=== PATIENT | female | born 1975 | race African-American/Black ===

== ENCOUNTER 2018-08-25 11:43 | Emergency (ER) | payer OTHER ==
[2018-08-25 11:47] VITALS: BMI 30.1
--- NOTE | 2018-08-25 12:41 | PDOC ---
*Physical Exam - Vital Signs Last Vital Signs Temp Pulse Resp BP Pulse Ox 98.7 F 90 20 116/79 99 08/25/18 11:45 08/25/18 11:45 08/25/18 11:45 08/25/18 11:45 08/25/18 11:45 ED Treatment Course - LABORATORY CBC & Chemistry Diagram: 08/25/18 13:05 08/25/18 13:05 Medical Decision Making - Medical Decision Making 08/25/18 12:40 42 yo F presenting with a complaint of 2 weeks of cough Now with chest tightness No prior history of asthma No fevers or chills No exertional symptoms Pt seen by Midlevel Provider under my direct supervision Pt interviewed and examined Ancillary studies reviewed Likely bronchitis I agree with plan as outlined by Midlevel Provider Pt improved after neb treatment 08/25/18 12:46 Twelve-lead EKG was performed and reviewed by me. There is normal sinus rhythm with a normal rate. The axis is normal. The intervals are normal. There are no ST or T wave abnormalities. Impression: Normal twelve-lead EKG 08/28/18 20:03 *DC/Admit/Observation/Transfer Diagnosis at time of Disposition: Bronchitis - Discharge Dispostion Disposition: HOME Condition at time of disposition: Stable - Prescriptions Prescriptions: Albuterol Sulfate Inhaler - [Ventolin HFA Inhaler -] 1 - 2 inh PO Q4H #1 inhaler Benzonatate [Tessalon Pearls -] 100 mg PO TID #21 capsule Methylprednisolone [Medrol Dose Khoi] 4 mg PO ASDIR #21 tablet - Referrals Referrals: Filemon Ibarra MD [Staff Physician] - - Patient Instructions Printed Discharge Instructions: DI for Acute Bronchitis Additional Instructions: You have bronchitis. Please take the albuterol inhaler every 4 hours until her symptoms improve. He may take a Medrol Dosepak as prescribed. Start taking this tomorrow as he received steroids today. Please take Tessalon Perles every 8 hours as needed for cough. Drink plenty of fluids. Her EKG and chest x-ray were normal today. Help with her primary care doctor this week. Return to the emergency department for increased difficulty breathing, chest pain, or if you have any changes in her symptoms. - Post Discharge Activity Forms/Work/School Notes: Back to Work
[2018-08-25] MEDS ORDERED: predniSONE 20 MG TABLET (UD) PO ONE (12:43)
--- NOTE | 2018-08-25 12:44 | PDOC ---
History of Present Illness - General Chief Complaint: Chest Pain Stated Complaint: CHEST PAIN Time Seen by Provider: 08/25/18 12:25 Past History - Travel Traveled outside of the country in the last 30 days: No Close contact w/someone who was outside of country & ill: No - Past Medical History Allergies/Adverse Reactions: Allergies Allergy/AdvReac Type Severity Reaction Status Date / Time No Known Allergies Allergy Verified 08/25/18 11:47 Home Medications: Ambulatory Orders Albuterol Sulfate Inhaler - [Ventolin HFA Inhaler -] 1 - 2 inh PO Q4H #1 inhaler 08/25/18 Benzonatate [Tessalon Pearls -] 100 mg PO TID #21 capsule 08/25/18 Methylprednisolone [Medrol Dose Khoi] 4 mg PO ASDIR #21 tablet 08/25/18 COPD: No Diabetes: Yes - Immunization History Immunization Up to Date: Yes - Suicide/Smoking/Psychosocial Hx Smoking History: Never smoked Have you smoked in the past 12 months: No Information on smoking cessation initiated: No Hx Alcohol Use: Yes (social) Drug/Substance Use Hx: No Review of Systems - Review of Systems Able to Perform ROS?: Yes Comments:: 08/25/18 12:44 CONSTITUTIONAL: Absent: fever, chills, diaphoresis, generalized weakness, malaise, loss of appetite HEENT: Absent: rhinorrhea, nasal congestion, throat pain, throat swelling, difficulty swallowing, mouth swelling, ear pain, eye pain, visual Changes CARDIOVASCULAR: Absent: chest pain, loss of consciousness, palpitations, irregular heart rate, peripheral edema RESPIRATORY: Absent: cough, shortness of breath, dyspnea with exertion, orthopnea, wheezing, stridor, hemoptysis GASTROINTESTINAL: Absent: abdominal pain, abdominal distension, nausea, vomiting, diarrhea, constipation, melena, hematochezia GENITOURINARY: Absent: dysuria, frequency, urgency, hesitancy, hematuria, flank pain, genital pain MUSCULOSKELETAL: Absent: myalgia, arthralgia, joint swelling SKIN: Absent: rash, itching, pallor HEMATOLOGIC/IMMUNOLOGIC: Absent: easy bleeding, easy bruising, lymphadenopathy, frequent infections ENDOCRINE: Absent: unexplained weight gain, unexplained weight loss, heat intolerance, cold intolerance NEUROLOGIC: Absent: headache, focal weakness or paresthesias, dizziness, unsteady gait, seizure, mental status changes, bladder or bowel incontinence PSYCHIATRIC: Absent: anxiety, depression, suicidal or homicidal ideation, hallucinations. Is the patient limited Arabic proficient: No *Physical Exam - Vital Signs Last Vital Signs Temp Pulse Resp BP Pulse Ox 98.7 F 90 20 116/79 99 08/25/18 11:45 08/25/18 11:45 08/25/18 11:45 08/25/18 11:45 08/25/18 11:45 - Physical Exam Comments: 08/25/18 12:44 GENERAL: Well developed, well nourished. Awake and alert. No acute distress. HEENT: Normocephalic, atraumatic. PERRLA, EOMI. No conjunctival pallor. Sclera are non- icteric. Moist mucous membranes. Oropharynx is clear. NECK: Supple. Full ROM. No JVD. Carotid pulses 2+ and symmetric, without bruits. No thyromegaly. No lymphadenopathy. CARDIOVASCULAR: Regular rate and rhythm. No murmurs, rubs, or gallops. Distal pulses are 2+ and symmetric. PULMONARY: No evidence of respiratory distress. Lungs clear to auscultation bilaterally. No wheezing, rales or rhonchi. ABDOMINAL: Soft. Non-tender. Non-distended. No rebound or guarding. No organomegaly. Normoactive bowel sounds. MUSCULOSKELETAL Normal range of motion at all joints. No bony deformities or tenderness. No CVA tenderness. EXTREMITIES: No cyanosis. No clubbing. No edema. No calf tenderness. SKIN: Warm and dry. Normal capillary refill. No rashes. No jaundice. NEUROLOGICAL: Alert, awake, appropriate. Cranial nerves 2-12 intact. No deficits to light touch and temperature in face, upper extremities and lower extremities. No motor deficits in the in face, upper extremities and lower extremities. Normoreflexic in the upper and lower extremities. Normal speech. Toes are down- going bilaterally. Gait is normal without ataxia. PSYCHIATRIC: Cooperative. Good eye contact. Appropriate mood and affect. Moderate Sedation - Procedure Monitoring Vital Signs: Procedure Monitoring Vital Signs Temperature 98.7 F 08/25/18 11:45 Pulse Rate 90 08/25/18 11:45 Respiratory Rate 20 08/25/18 11:45 Blood Pressure 116/79 08/25/18 11:45 O2 Sat by Pulse Oximetry (%) 99 08/25/18 11:45 ED Treatment Course - LABORATORY CBC & Chemistry Diagram: 12/21/18 13:05 08/25/18 13:05 *DC/Admit/Observation/Transfer Diagnosis at time of Disposition: Bronchitis - Discharge Dispostion Disposition: HOME Condition at time of disposition: Stable Decision to Admit order: No - Referrals Referrals: Filemon Ibarra MD [Staff Physician] - - Patient Instructions Printed Discharge Instructions: DI for Acute Bronchitis Additional Instructions: You have bronchitis. Please take the albuterol inhaler every 4 hours until her symptoms improve. He may take a Medrol Dosepak as prescribed. Start taking this tomorrow as he received steroids today. Please take Tessalon Perles every 8 hours as needed for cough. Drink plenty of fluids. Her EKG and chest x-ray were normal today. Help with her primary care doctor this week. Return to the emergency department for increased difficulty breathing, chest pain, or if you have any changes in her symptoms. - Post Discharge Activity Forms/Work/School Notes: Back to Work
[2018-08-25] MEDS ORDERED: ALBUTEROL SO4 2.5/IPRATROPIUM 0.5 INH SOL 3 ML VIAL.NEB. NEB ONE ×2 (12:48→13:25)
[2018-08-25] MEDS ORDERED: predniSONE 20 MG TABLET (UD) ONE (12:49)
[2018-08-25] MEDS: ALBUTEROL SO4 2.5/IPRATROPIUM 0.5 INH SOL 3 ML VIAL.NEB. NEB SCH ×4 (12:56→13:52)
[2018-08-25 13:12] LABS: BASO % 0.9 % (0-2.0); EOS % 3.6 % (0-4.5); HEMATOCRIT 38.8 % (32.4-45.2); HEMOGLOBIN 13.2 GM/dL (10.7-15.3); LYMPH % 43.1 % (8-40); MCH 28.8 pg (25.7-33.7); MCHC 34.1 g/dl (32.0-36.0); MEAN CELL VOLUME 84.5 fl (80-96); MEAN PLT VOLUME 8.4 fl (7.5-11.1); MONO % 11.6 % (3.8-10.2); NEUT % 40.8 % (42.8-82.8); PLATELET COUNT 231 K/MM3 (134-434); RBC 4.59 M/mm3 (3.60-5.2); RDW 14.8 % (11.6-15.6); WHITE BLOOD COUNT 3.6 K/mm3 (4.0-10.0)
[2018-08-25 13:52] LABS: URINE APPEARANCE SLCLOUDY; URINE BILIRUBIN NEGATIVE (<2.0 mg/dL); URINE COLOR DKYELLOW; URINE GLUCOSE (UA) 1+ (NEGATIVE); URINE KETONE TRACE (NEGATIVE); URINE LEUK ESTERASE NEGATIVE (NEGATIVE); URINE NITRITE NEGATIVE (NEGATIVE); URINE PROTEIN NEGATIVE (NEGATIVE)
[2018-08-25 14:16] LABS: ALBUMIN 3.7 g/dl (3.4-5.0); ALK PHOS 102 U/L (45-117); ANION GAP 5 MMOL/L (8-16); BILIRUBIN,TOTAL 0.2 mg/dL (0.2-1); BLOOD UREA NITROGEN 12 mg/dL (7-18); CALCIUM 8.8 mg/dL (8.5-10.1); CHLORIDE 102 mmol/L (98-107); CO2 29 mmol/L (21-32); CREATININE 0.7 mg/dL (0.55-1.3); GLUCOSE,RANDOM 210 mg/dL (74-106); POTASSIUM 4.1 mmol/L (3.5-5.1); SGOT/AST 17 U/L (15-37); SGPT/ALT 22 U/L (13-61); SODIUM 137 mmol/L (136-145); TOT PROT 7.9 g/dl (6.4-8.2)
--- NOTE | 2018-08-25 14:22 | EKG ---
Test Reason : Blood Pressure : / mmHG Vent. Rate : 085 BPM Atrial Rate : 085 BPM P-R Int : 160 ms QRS Dur : 084 ms QT Int : 356 ms P-R-T Axes : 035 026 019 degrees QTc Int : 423 ms POOR DATA QUALITY, INTERPRETATION MAY BE ADVERSELY AFFECTED NORMAL SINUS RHYTHM NORMAL ECG NO PREVIOUS ECGS AVAILABLE Confirmed by SELENE MCKAY MD ([id number]) on 08/25/2018 2:21:39 PM Referred By: Confirmed By:SELENE MCKAY MD
[2018-08-25 15:16] VITALS: BP 126/78; PULSE 78; TEMP 98.2
== END 2018-08-25 15:15 | disposition home or self-care (01) ==
LOC: JER 11:43
PROC: 3E0F7GC Introduction of Other Therapeutic Substance into Respiratory Tract, Via Natural or Artificial Opening (ICD-10-PCS; principal; 2018-08-25)
DX: J20.9 Acute bronchitis, unspecified (principal)
CPT/HCPCS: 36415; 71046-TC-FY; 80053; 81003; 85025; 93005; 93010; 99282-25

== ENCOUNTER 2019-02-28 13:37 | Emergency (ER) | payer OTHER ==
[2019-02-28] MEDS ORDERED: ASPIRIN 81 MG CHEWABLE TABLETS PO ONE ×2 (13:40→15:41)
[2019-02-28 13:41] VITALS: BP 114/76; PULSE 86; TEMP 98.5; BMI 29.2
--- NOTE | 2019-02-28 13:41 | PDOC ---
Rapid Medical Evaluation Time Seen by Provider: 02/28/19 13:39 Medical Evaluation: Allergies Allergy/AdvReac Type Severity Reaction Status Date / Time No Known Allergies Allergy Verified 08/25/18 11:47 02/28/19 13:39 HPI: Chest pain radiating into L arm PE: No gross deficits: Orders Cardiac work up Discharge Disposition - Diagnosis Chest pain - Referrals Referrals: Juan Pablo Aragon MD [Primary Care Provider] - - Patient Instructions - Post Discharge Activity
--- NOTE | 2019-02-28 15:19 | PDOC ---
History of Present Illness - General Chief Complaint: Chest Pain Stated Complaint: Chest Pain Time Seen by Provider: 02/28/19 13:39 - History of Present Illness Initial Comments: 02/28/19 15:18 Ms. Oates is a 43 yo female w/ no significant pmh who presents for evaluation of chest pain and light-headed feeling. Patient reports symptoms started yesterday with generalized "off" feeling that she describes as feeling light- headed. Ms. 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 Patient denies any other associated symptoms and has never had this feeling before. Is no longer having chest pain however now describes her symptoms as "chest pressure." The patient denies headache and dizziness. Denies fever, chills, nausea, vomit, diarrhea and constipation. Denies dysuria, frequency, urgency and hematuria. Past History - Past Medical History Allergies/Adverse Reactions: Allergies Allergy/AdvReac Type Severity Reaction Status Date / Time No Known Allergies Allergy Verified 02/28/19 13:41 Home Medications: Ambulatory Orders NK [No Known Home Medication] 02/28/19 COPD: No Diabetes: Yes - Immunization History Immunization Up to Date: Yes - Suicide/Smoking/Psychosocial Hx Smoking History: Never smoked Have you smoked in the past 12 months: No Hx Alcohol Use: Yes (social) Drug/Substance Use Hx: No Review of Systems - Review of Systems Comments:: 02/28/19 15:18 GENERAL/CONSTITUTIONAL: No fever or chills. No weakness. HEAD, EYES, EARS, NOSE AND THROAT: No change in vision. No ear pain or discharge. No sore throat. CARDIOVASCULAR: +Chest pain and SOB as described w/ "lightheaded feeling" RESPIRATORY: No cough, wheezing, or hemoptysis. GASTROINTESTINAL: No nausea, vomiting, diarrhea or constipation. GENITOURINARY: No dysuria, frequency, or change in urination. MUSCULOSKELETAL: No joint or muscle swelling or pain. No neck or back pain. SKIN: No rash NEUROLOGIC: No headache, vertigo, loss of consciousness, or change in strength/ sensation. ENDOCRINE: No increased thirst. No abnormal weight change HEMATOLOGIC/LYMPHATIC: No anemia, easy bleeding, or history of blood clots. ALLERGIC/IMMUNOLOGIC: No hives or skin allergy. *Physical Exam - Vital Signs Last Vital Signs Temp Pulse Resp BP Pulse Ox 98.5 F 86 18 114/76 96 02/28/19 13:39 02/28/19 13:39 02/28/19 13:39 02/28/19 13:39 02/28/19 13:39 - Physical Exam Comments: 02/28/19 15:18 GENERAL: Awake, alert, and fully oriented, in no acute distress HEAD: No signs of trauma, normocephalic, atraumatic EYES: PERRLA, EOMI, sclera anicteric, conjunctiva clear ENT: Auricles normal inspection, hearing grossly normal, nares patent, oropharynx clear without exudates. Moist mucosa NECK: Normal ROM, supple, no lymphadenopathy, JVD, or masses LUNGS: +Reproducible chest TTP. No distress, speaks full sentences, clear to auscultation bilaterally HEART: Regular rate and rhythm, normal S1 and S2, no murmurs, rubs or gallops, peripheral pulses normal and equal bilaterally. ABDOMEN: Soft, nontender, normoactive bowel sounds. No guarding, no rebound. No masses EXTREMITIES: Normal inspection, Normal range of motion, no edema. No clubbing or cyanosis. NEUROLOGICAL: Cranial nerves II through XII grossly intact. Normal speech, normal gait, no focal sensorimotor deficits SKIN: Warm, Dry, normal turgor, no rashes or lesions noted. ED Treatment Course - LABORATORY CBC & Chemistry Diagram: 02/28/19 15:50 02/28/19 15:50 Medical Decision Making - Medical Decision Making 02/28/19 15:42 Ms. Oates is a 43 yo female w/ no pmh who presents for evaluation of symptoms concerning for ACS vs. pulmonary vs. viral etiology vs. MSK pain. Patient will be evaluated w/ cardiac labs and CXR for acute causes. EKG performed and normal sinus rhythm. 02/28/19 18:46 Initial labs grossly wnl as below. CXR negative. Patient well appearing at this time. Suspect MSK etiology of pain. Patient currently pending second troponin for discharge. 02/28/19 18:46 Patient signed out to Dr. Case for further evaluation. Laboratory Results - last 24 hr 02/28/19 02/28/19 02/28/19 15:50 15:50 15:50 WBC 5.0 RBC 4.45 Hgb 12.4 Hct 38.4 MCV 86.3 MCH 27.9 MCHC 32.3 RDW 14.5 Plt Count 213 MPV 8.9 Absolute Neuts (auto) 2.3 Neutrophils % 45.8 Lymphocytes % 39.7 Monocytes % 7.6 Eosinophils % 5.9 H Basophils % 1.0 Nucleated RBC % 0 PT with INR 12.60 INR 1.07 Sodium 139 Potassium 4.3 Chloride 106 Carbon Dioxide 27 Anion Gap 6 L BUN 9.8 Creatinine 0.6 Est GFR (CKD-EPI)AfAm 130.30 Est GFR (CKD-EPI)NonAf 112.42 Random Glucose 140 H Calcium 8.6 Magnesium 2.2 Total Bilirubin 0.4 AST 15 ALT 24 Alkaline Phosphatase 97 Creatine Kinase 119 Troponin I < 0.02 Total Protein 7.9 Albumin 3.8 Serum , Qual 02/28/19 16:55 WBC RBC Hgb Hct MCV MCH MCHC RDW Plt Count MPV Absolute Neuts (auto) Neutrophils % Lymphocytes % Monocytes % Eosinophils % Basophils % Nucleated RBC % PT with INR INR Sodium Potassium Chloride Carbon Dioxide Anion Gap BUN Creatinine Est GFR (CKD-EPI)AfAm Est GFR (CKD-EPI)NonAf Random Glucose Calcium Magnesium Total Bilirubin AST ALT Alkaline Phosphatase Creatine Kinase Troponin I Total Protein Albumin Serum , Qual Negative *DC/Admit/Observation/Transfer Diagnosis at time of Disposition: Chest pain Qualifiers: Chest pain type: unspecified Qualified Code(s): R07.9 - Chest pain, unspecified - Discharge Dispostion Disposition: HOME - Referrals Referrals: Juan Pbalo Aragon MD [Primary Care Provider] - - Patient Instructions Printed Discharge Instructions: DI for Chest Pain Additional Instructions: You were evaluated today in the ER for your chest pain. We evaluated you with labs, EKG, and chest X-ray with no concerning findings and believe you are safe to return home. You may take over the counter motrin or tylenol per package instructions for pain control. Follow-up with primary care provider next week as needed for further evaluation. Return to ER if any fever, chills, shortness of breath, worsening of pain, or other concerning symptoms. - Post Discharge Activity Forms/Work/School Notes: Back to Work
[2019-02-28] MEDS ORDERED: ASPIRIN 325 MG TABLET ONE (15:50)
--- NOTE | 2019-02-28 16:41 | PDOC ---
Documentation entered by Consuelo Cabrera SCRIBE, acting as scribe for Will Tristan MD. Will Tristan MD: This documentation has been prepared by the scribe, Consuelo Cabrera SCRIBE, under my direction and personally reviewed by me in its entirety. I confirm that the documentation accurately reflects all work, treatment, procedures, and medical decision making performed by me. Attending Attestation - Resident Resident Name: MariyaAvni - ED Attending Attestation I have performed the following: I have examined & evaluated the patient, The case was reviewed & discussed with the resident, I agree w/resident's findings & plan, Exceptions are as noted - HPI HPI: 02/28/19 16:12 The patient is a 43-year-old female, with no past medical history, who presents to the ED with sharp LT-sided chest pain, radiating to her LT arm, with associated shortness of breath on exertion. Patient works for [employer] which requires her to do a lot of heavy lifting and walking. Denies experiencing these symptoms in the past. - Physicial Exam PE: 02/28/19 16:39 Patient is awake and alert, well-nourished, in no distress Normocephalic, atraumatic PERRLA, EOMI CTA + Reproducible left anterior chest wall tenderness to palpation RRR No lower extremity edema - Medical Decision Making 02/28/19 16:39 Patient is a 43-year-old female with no previous medical history of presents with atypical chest discomfort. In the ER, patient is resting comfortably and is noted to be hemodynamically stable. EKG shows no evidence of acute ischemia right-sided heart strain. Chest x-ray reveals no evidence of cardiomegaly. Patient's heart score is noted to be 0. Will rule out with serial troponins and will discharge with outpatient follow-up. 02/28/19 16:41 Heart Score/ECG Review - History History: Slightly suspicious - Electrocardiogram EKG: Normal - Age Age: </= 45 - Risk Factors Risk Factors Heart Score: No Hx Hypercholesterolemia, No Hx Hypertension, No Hx Diabetes, No Smoking History, No Positive family hx of cardiac disease, No Hx Obesity Based on the list above the patient has:: No risk factors known - Troponin Troponin: </= normal limit - Score Heart Score - Total: 0
[2019-02-28 16:58] LABS: ALBUMIN 3.8 g/dl (3.4-5.0); ALK PHOS 97 U/L (45-117); ANION GAP 6 MMOL/L (8-16); BILIRUBIN,TOTAL 0.4 mg/dL (0.2-1); BLOOD UREA NITROGEN 9.8 mg/dL (7-18); CALCIUM 8.6 mg/dL (8.5-10.1); CHLORIDE 106 mmol/L (98-107); CO2 27 mmol/L (21-32); CREATININE 0.6 mg/dL (0.55-1.3); GLUCOSE,RANDOM 140 mg/dL (74-106); MAGNESIUM 2.2 mg/dL (1.8-2.4); POTASSIUM 4.3 mmol/L (3.5-5.1); SGOT/AST 15 U/L (15-37); SGPT/ALT 24 U/L (13-61); SODIUM 139 mmol/L (136-145); TOT PROT 7.9 g/dl (6.4-8.2)
[2019-02-28 17:03] LABS: EOS % 5.9 % (0-4.5); HEMATOCRIT 38.4 % (32.4-45.2); HEMOGLOBIN 12.4 GM/dL (10.7-15.3); LYMPH % 39.7 % (8-40); MCH 27.9 pg (25.7-33.7); MCHC 32.3 g/dl (32.0-36.0); MEAN CELL VOLUME 86.3 fl (80-96); MEAN PLT VOLUME 8.9 fl (7.5-11.1); MONO % 7.6 % (3.8-10.2); NEUT % 45.8 % (42.8-82.8); PLATELET COUNT 213 K/MM3 (134-434); RBC 4.45 M/mm3 (3.60-5.2); RDW 14.5 % (11.6-15.6)
[2019-02-28 18:24] LABS: INR 1.07 (0.83-1.09); PROTHROMBIN TIME (PATIENT) 12.6 SEC (9.7-13.0)
--- NOTE | 2019-02-28 19:20 | EKG ---
Test Reason : Blood Pressure : / mmHG Vent. Rate : 079 BPM Atrial Rate : 079 BPM P-R Int : 170 ms QRS Dur : 088 ms QT Int : 376 ms P-R-T Axes : 023 026 034 degrees QTc Int : 431 ms NORMAL SINUS RHYTHM NORMAL ECG WHEN COMPARED WITH ECG OF 25-AUG-2018 12:45, NO SIGNIFICANT CHANGE WAS FOUND Confirmed by SELENE MCKAY MD ([id number]) on 02/28/2019 7:20:00 PM Referred By: Confirmed By:SELENE MCKAY MD
== END 2019-02-28 19:52 | disposition home or self-care (01) ==
LOC: JER 13:37
DX: R07.9 Chest pain, unspecified (principal)
CPT/HCPCS: 36415; 71046-TC-FY; 80053; 82550; 83735; 84484; 84703; 85025; 85610; 93005; 93010; 99283-25

== ENCOUNTER 2021-04-15 16:07 | Emergency (ER) | payer OTHER ==
[2021-04-15 16:11] VITALS: BP 127/79; PULSE 105; TEMP 97; BMI 29.6
== END 2021-04-15 18:09 | disposition home or self-care (01) ==
LOC: JERFT 16:07
DX: T16.1XXA Foreign body in right ear, initial encounter (principal)
CPT/HCPCS: 99281-25

== ENCOUNTER 2023-01-10 09:40 | Emergency (ER) | payer OTHER ==
[2023-01-10 09:46] VITALS: BP 131/84; PULSE 94; RESP 18; TEMP 98
[2023-01-10] MEDS ORDERED: ACETAMINOPHEN 1000 MG/100 ML BAG IVPB ONE (10:34)
[2023-01-10] MEDS ORDERED: ONDANSETRON 4 MG/2 ML VIAL IVPUSH ONE (10:34)
[2023-01-10] MEDS ORDERED: SODIUM CHLORIDE 0.9% 1000 ML INFUS.BAG IV ONE (10:34)
[2023-01-10] MEDS ORDERED: FAMOTIDINE 20 MG/50 ML IVPB 20 MG/50 ML MG IVPB ONE (10:34)
[2023-01-10] MEDS ORDERED: MAG HYDROX/AL HYDROX/SIMETH -MYLANTA- ORAL SUSPENSION PO ONE (10:39)
[2023-01-10] MEDS ORDERED: PANTOPRAZOLE SODIUM 40 MG VIAL IVPUSH ONE (10:39)
[2023-01-10] MEDS ORDERED: ACETAMINOPHEN INJECTION 100 ML IVPB ONE (10:47)
[2023-01-10] MEDS ORDERED: MAG HYDROX/AL HYDROX/SIMETH 30 ML UNIT-DOSE CUP ONE (10:48)
[2023-01-10] MEDS ORDERED: PANTOPRAZOLE SODIUM 40 MG/100 ML BAG IVPB ONE (10:48)
[2023-01-10] MEDS ORDERED: ONDANSETRON 4 MG/2 ML VIAL ONE (10:49)
[2023-01-10 12:09] LABS: CALCIUM 9.1 mg/dL (8.5-10.1)
[2023-01-10 12:10] LABS: ALBUMIN 3.7 g/dl (3.4-5.0); BASO % 0.5 % (0-2.0); BLOOD UREA NITROGEN 7.9 mg/dL (7-18); HEMATOCRIT 39.2 % (32.4-45.2); HEMOGLOBIN 13.5 GM/dL (10.7-15.3); LYMPH % 33.8 % (8-40); MAGNESIUM 1.8 mg/dL (1.8-2.4); MCH 29.2 pg (25.7-33.7); MCHC 34.4 g/dl (32.0-36.0); MEAN PLT VOLUME 9.8 fl (7.5-11.1); MONO % 7.1 % (3.8-10.2); NEUT % 54.6 % (42.8-82.8); PLATELET COUNT 245 10^3/uL (134-434); RBC 4.61 M/mm3 (3.60-5.2); RDW 13.4 % (11.6-15.6); WHITE BLOOD COUNT 7.1 K/mm3 (4.0-10.0)
[2023-01-10 12:13] LABS: CREATININE 0.7 mg/dL (0.55-1.3)
[2023-01-10 12:14] LABS: BILIRUBIN,TOTAL 0.4 mg/dL (0.2-1); TOT PROT 7.8 g/dl (6.4-8.2)
== END 2023-01-10 13:01 | disposition home or self-care (01) ==
LOC: JER 09:40
PROC: 3E033GC Introduction of Other Therapeutic Substance into Peripheral Vein, Percutaneous Approach (ICD-10-PCS; principal; 2023-01-10)
PROC: 3E033NZ Introduction of Analgesics, Hypnotics, Sedatives into Peripheral Vein, Percutaneous Approach (ICD-10-PCS; 2023-01-10)
PROC: 3E033GC Introduction of Other Therapeutic Substance into Peripheral Vein, Percutaneous Approach (ICD-10-PCS; 2023-01-10)
PROC: 3E033GC Introduction of Other Therapeutic Substance into Peripheral Vein, Percutaneous Approach (ICD-10-PCS; 2023-01-10)
DX: K52.9 Noninfective gastroenteritis and colitis, unspecified (principal); K80.20 Calculus of gallbladder without cholecystitis without obstruction; R11.10 Vomiting, unspecified; R19.7 Diarrhea, unspecified; Z20.822 Contact with and (suspected) exposure to COVID-19
CPT/HCPCS: 0241U-QW; 36415; 80053; 83690; 83735; 85025; 99284-25